=== PATIENT | male | born 1990 | race Caucasian/White ===

== ENCOUNTER 2021-08-20 22:17 | Inpatient (IN) ==
[2021-08-20] MEDS ORDERED: KETOROLAC TROMETHAMINE 15 MG/ML VIAL IV STA (22:32)
[2021-08-20] MEDS ORDERED: ONDANSETRON INJ 2 MG/ML 2 ML VIAL IV STA (22:32)
[2021-08-20] MEDS ORDERED: SODIUM CHLORIDE 0.9% 500 ML IV STA (22:32)
[2021-08-20] MEDS ORDERED: MoRPHine SULFATE 4 MG/ML 1 ML CARP\\VIAL IV STA ×2 (22:38→23:38)
--- NOTE | 2021-08-20 22:54 | Emergency Department Note ---
History of Present Illness General Chief complaint: Kidney Stone Stated complaint: POSS KIDNEY STONE, BLOOD IN URINE, L SIDE FLANK Time Seen by Provider: 08/20/21 22:26 History of Present Illness Maximum Pain Intensity: 9 This 31-year-old with history of kidney stones presents to the ER complaining of left flank pain Location: Left flank Quality: Painful Severity: Moderate Duration: Today Timing: Today Context: Patient was concerned and came in Modifying factors: better with nothing; worse with nothing Patient denies chest pain, dyspnea, fevers, flulike illness. Symptoms feel similar to his prior kidney stones. Home Medications Medication Instructions Recorded Confirmed Type acetaminophen 325 mg tablet 650 mg PO DIRECTED PRN 08/20/21 08/20/21 History (Tylenol) Allergies Allergy/AdvReac Type Severity Reaction Status Date / Time No Known Allergies Allergy Unknown UNKNOWN Verified 08/20/21 23:05 Past Med/Surg History Medical History Asthma as a child - no problems currently. no inhalers needed Nephrolithiasis Surgical History H/O wisdom tooth extraction History of dental surgery several dental implants Family History Grandfather Prostate cancer Diabetes Grandmother Breast cancer Nephrolithiasis Aunt Nephrolithiasis Father Hypertension Social History Smoking Status: Never smoker Second Hand Exposure: No; Hx Alcohol Use: Yes Alcohol type: beer Hx Substance Use: No Preferred Language: Norwegian Communication Ability: Effective General Utility Maintenance Repairer Required: No Beliefs That Will Affect Care: None marital status: Single Current Living Situation: Parent Current Living Situation Comment: mom and father current occupational 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 Feels Safe at Home: Yes Assistive Devices: Contacts and Glasses Review of Systems A total of 10 systems reviewed and were otherwise negative Physical Exam Vital Signs Vital Signs - 24 hr 08/20/21 22:21 08/20/21 22:47 Temperature 35.9 C L Temperature Source Temporal Artery Scan Pulse Rate 50 L Pulse Rate [Right Finger] 100 H Respiratory Rate 18 20 Respiratory Effort / Characteristics Non-Labored Spontaneous Non-Labored Respiratory Depth Normal Normal Blood Pressure 131/84 Blood Pressure [Right Arm] 132/80 Blood Pressure Mean 99 Blood Pressure Mean [Right Arm] 97 Pulse Oximetry 98 100 Oxygen Delivery Method Room Air Room Air Sepsis Recent Fever Within 48 Hours No Sepsis New/Unexplained Change in Mental Status No Sepsis Action Taken by Nursing No Action Required VITALS: Vitals are noted on the nurse's note and reviewed by myself. Vital signs stable. GENERAL: Pleasant gentleman who appears in pain, in no acute distress, non diaphoretic, well-developed well-nourished. SKIN: The skin was without rashes, erythema, edema, or bruising. There is no tenting of the skin. Capillary reflex less than 2 seconds. HEAD: Normocephalic atraumatic. EARS: External auditory canals clear, EYES: Pupils equal round and reactive to light and accommodation. Conjunctivae without injection, sclerae without icterus. Extraocular movements intact. NOSE: Patent, turbinates without inflammation or discharge. MOUTH: Mucous membranes moist. Pharynx without erythema or exudate. Uvula midline. Airway patent. Tongue does not deviate. NECK: Supple without nuchal rigidity. No lymphadenopathy. No thyromegaly. Cervical spine is nontender. No JVD. HEART: Regular rate and rhythm LUNGS: Clear to auscultation bilaterally without wheezes, rales or rhonchi. No retractions or accessory muscle use. ABDOMEN: Positive bowel sounds x 4. Normal tympanic percussion. Soft, nontender, without masses or organomegaly. Rivas sign negative. No guarding or rebound tenderness. No CVA tenderness MUSCULOSKELETAL: No muscle atrophy, erythema, or edema noted. NEURO: Patient was alert and oriented to person place and time. Normal se nsation to light and sharp touch. No focal neurological deficits. Course Administered Medications Discontinued Medications Sodium Chloride (Nss) 500 mls @ 999 mls/hr IV .Q31M STA Stop: 08/20/21 23:02 Last Infusion: 08/20/21 23:16 Dose: 0 mls/hr Documented by: [id number] Admin: 08/20/21 22:42 Dose: 999 mls/hr Documented by: [id number] Ketorolac Tromethamine (Ketorolac Tromethamine 15 Mg/Ml Vial) 10 mg IV NOW STA Stop: 08/20/21 22:33 Last Admin: 08/20/21 22:42 Dose: 10 mg Documented by: [id number] Morphine Sulfate (Morphine Sulfate 4 Mg/Ml 1 Ml Carp\Vial) 4 mg IV NOW STA Stop: 08/20/21 22:39 Last Admin: 08/20/21 22:42 Dose: 4 mg Documented by: [id number] Morphine Sulfate (Morphine Sulfate 4 Mg/Ml 1 Ml Carp\Vial) 4 mg IV NOW STA Stop: 08/20/21 23:39 Last Admin: 08/20/21 23:40 Dose: 4 mg Documented by: [id number] Ondansetron HCl (Ondansetron Inj 2 Mg/Ml 2 Ml Vial) 4 mg IV NOW STA Stop: 08/20/21 22:33 Last Admin: 08/20/21 22:42 Dose: 4 mg Documented by: [id number] Tamsulosin HCl (Tamsulosin Hcl 0.4 Mg Cap) 0.4 mg PO NOW ONE Stop: 08/20/21 23:39 Last Admin: 08/21/21 00:09 Dose: 0.4 mg Documented by: [id number] Medical Decision Making Medical Records Attestation: I reviewed the patient's medical records. Home Medications Current Medication List: was personally reviewed by me Laboratory Data Attestation: I reviewed the patient's lab results. Result diagrams: 08/20/21 22:36 08/20/21 22:36 Lab Results 08/20/21 08/20/21 08/20/21 Range/Units 22:36 22:36 23:27 WBC 8.74 (4.8-10.8) K/uL RBC 5.30 (4.7-6.1) M/uL Hgb 16.3 (14.0-18.0) g/dL Hct 46.6 (42-52) % MCV 87.9 (80-100) fL MCH 30.8 (25-34) pg MCHC 35.0 (32-36) g/dL RDW Std Deviation 42.8 (36.4-46.3) fL RDW Coeff of Kaden 13.2 (11.5-14.5) % Plt Count 255 (130-400) K/uL MPV 9.2 (7.4-10.4) fL Sodium 139 (136-145) mmol/L Potassium 3.4 L (3.5-5.1) mmol/L Chloride 104 (98-107) mmol/L Carbon Dioxide 28 (21-32) mmol/L Anion Gap 7 (3-11) BUN 21 (6-23) mg/dl Creatinine 1.20 (0.6-1.4) mg/dl Est Cr Clr Drug Dosing 105.6 ml/min Est GFR ( Amer) 92.2 ml/min Est GFR (Non-Af Amer) 79.5 ml/min BUN/Creatinine Ratio 17.5 (10-20) Glucose 101 H (70-99(Fasting)) mg/dl Calcium 10.0 (8.5-10.1) mg/dl Urine Color Yellow Urine Appearance Clear (Clear) Urine pH 6.0 (4.5-7.5) Ur Specific [place] 1.024 (1.000-1.030) Urine Protein Trace H (Negative) Urine Glucose (UA) Negative (Negative) Urine Ketones Negative (Negative) Urine Blood 3+ H (Negative) Urine Nitrite Negative (Negative) Urine Bilirubin Negative (Negative) Urine Urobilinogen Negative (Negative) Ur Leukocyte Esterase Trace H (Negative) Urine WBC (Auto) 5-10 H (0-5) /hpf Urine RBC (Auto) >30 H (0-4) /hpf U Hyaline Cast (Auto) 1-5 (0-5) /lpf U Epithel Cells (Auto) 5-10 H (0-5) /lpf Urine Bacteria (Auto) Negative (Negative) Imaging Data Attestation: I personally reviewed and interpreted this imaging study as follows: MDM Narrative Prior records/ancillary studies reviewed. Triage Nursing notes reviewed. Additional history obtained from the family. The patient's history was concerning for flank pain. Differential diagnosis: Etiologies such as renal colic, appendicitis, diverticulitis, mesenteric ischemia, aortic pathology, infections, inflammatory bowel disease, PUD, biliary pathology, UTI, as well as others were entertained. Physical examination findings: As above. ER treatment provided: Toradol Zofran morphine IV fluids On reassessment the patient felt better. Diagnostic interpretation by me: The labs revealed no worrisome leukocytosis. Urinalysis revealed There was no sign of UTI. Imaging studies: CT ABDOMEN & PELVIS Without Contrast: Comparison: CT abdomen and pelvis 01/03/21 Obstructing 5 mm proximal left ureter stone. Obstructing 7.4 mm mid left ureter stone. Mild upstream left-sided hydroureteronephrosis. Right kidney and collecting system are normal. Liver, gallbladder, spleen, pancreas, adrenal glands are unremarkable. Fluid-filled small bowel loops, probably reactive ileus. Normal appendix. No bowel obstruction. Hysterectomy. Normal urinary bladder. No acute osseous findings. Radiologist: Dorina Carvajal M.D. Consultation: A consultation was placed with the hospitalist. The case was discussed and diagnostics were reviewed. The patient was evaluated in the ER for further treatment. It appears that the patient has renal colic from a left Sided stone. She had 2 kidney stones. He was this fair amount of pain. Medicine is consulted. He will be admitted. By the evaluation outlined above emergent etiologies such as appendicitis, diverticulitis, mesenteric ischemia, aortic pathology, infections, inflammatory bowel disease, PUD, biliary pathology, UTI, as well as others were deemed relatively unlikely. The pt informed about the findings as listed above. All questions were answered and pleased with the treatment. The chart was completed utilizing [employer] voice recognition software. Grammatical errors, random word insertions, pronoun errors, and incomplete sentences are an occassional consequence of this system due to software limitations, ambient noise, and hardware issues. Any formal questions or concerns about the content, text, or information contained within the body of this dictation should be directly addressed to the physician program support assistant for clarification. Impression & Plan Renal colic on left side, Ureterolithiasis, Intractable pain Discharge Plan Visit Data Chief Complaint: Kidney Stone Stated Complaint: POSS KIDNEY STONE, BLOOD IN URINE, L SIDE FLANK ED Provider: Ti Broderick ED Midlevel Provider: Leanna Scott Discharge Problem: Renal colic on left side, Ureterolithiasis, Intractable pain Patient Disposition: Admitted As Inpatient Forms Stand Alone Forms: [facility] [employer] ([employer]) Prescriptions Prescriptions: No Action acetaminophen [Tylenol] 325 mg Tablet 650 mg PO DIRECTED PRN (Reason: PAIN/FEVER) RF: 0 Referrals Referrals: PCP,NO [Primary Care Provider] -
[2021-08-20 22:55] LABS: Hematocrit (blood only) 46.6 % (42-52); Hemoglobin 16.3 g/dL (14.0-18.0); Mean Corpuscular Hemoglobin 30.8 pg (25-34); Mean Corpuscular Volume 87.9 fL (80-100); Mean Platelet Volume 9.2 fL (7.4-10.4); Platelet Count 255 K/uL (130-400); RDW Coefficient of Variation 13.2 % (11.5-14.5); RDW Standard Deviation 42.8 fL (36.4-46.3); White Blood Count 8.74 K/uL (4.8-10.8)
[2021-08-20 23:11] LABS: BUN Creatinine Ratio 17.5 (10-20); Creatinine Clr Calc Pharmacy 105.6 ml/min; Est GFR (African American) 92.2 ml/min; Est GFR (Non-African American) 79.5 ml/min; Potassium 3.4 mmol/L (3.5-5.1)
[2021-08-20] MEDS ORDERED: TAMSULOSIN HCL 0.4 MG CAP PO ONE (23:38)
[2021-08-20 23:57] LABS: Appearance Urine Clear (Clear); Bacteria Urine Automated Negative (Negative); Bilirubin Urine Negative (Negative); Blood Urine 3+ (Negative); Color Urine Yellow; Glucose Urine UA Negative (Negative); Ketones Urine Negative (Negative); Leukocyte Esterase Urine Trace (Negative); Nitrite Urine Negative (Negative); Protein Urine Trace (Negative); RBC Urine Automated >30 /hpf (0-4); Specific Gravity Urine 1.024 (1.000-1.030); Urobilinogen Urine Negative (Negative)
--- NOTE | 2021-08-21 00:53 | Urology Consultation ---
Date of Consultation August 21, 2021 Assessment & Plan (1) Renal colic on left side: Due to the patient's imaging and clinical presentation he is being admitted to the hospital on the hospitalist service. We recommend proceeding as follows: Provide analgesics Provide antiemetics Provide hydration with IV fluids Provide Flomax for expulsive therapy Strain urine and save any kidney stones for analysis Maintain n.p.o. status Patient be reevaluated in the morning by the urology team to determine if patient will require cystoscopy Additional recommendations be forthcoming based on his clinical course as it unfolds History of Present Illness Reason for Consultation: Nephrolithiasis History of Present Illness This is a 31-year-old male who presented to [facility] secondary to left flank pain that began earlier today. Patient notes that the pain radiates to the front of his abdomen. With this pain he denies any fevers, rigors, or chills. He did report nausea and vomiting. He does report some difficulty urinating and he did note some blood in his urine but denies any dysuria. He does not report any palliative factors other than medicines administered in the emergency department. He did not note any provocative factors. He does report a history of kidney stones in the past. In January 2021 the patient was noted to have right-sided kidney stones for which she underwent a right extracorporeal shockwave lithotripsy by Dr. Armando. The patient says he has not had any other issues with kidney stones since that time until today. In the emergency department the patient had labs and imaging which I independently reviewed. A CT scan of the abdomen and pelvis showed the patient had obstructing 5 and 7.4 mm left ureteral stones with left-sided hydroureteronephrosis. A CBC revealed white blood cell count, hemoglobin, hematocrit, platelet count were all normal. Chemistry profile showed sodium and potassium are 139 and 3.4. BUN and creatinine were both normal. Urinalysis did show 3+ blood and trace leukocyte esterase. It was otherwise not indicative of infection. A COVID test was ordered and is pending. The patient notes that he leads an active lifestyle. He works out at the gym several times per week and also works for [employer] which is a strenuous physical job. With his day-to-day activities he does not report any chest pain or shortness of breath. At the time of my interview the patient was resting comfortably in bed and he was in no distress. Allergies Allergy/AdvReac Type Severity Reaction Status Date / Time No Known Allergies Allergy Unknown UNKNOWN Verified 08/20/21 23:05 Home Medications Medication Instructions Recorded Confirmed Type acetaminophen 325 mg tablet 650 mg PO DIRECTED PRN 08/20/21 08/20/21 History (Tylenol) Patient History Medical History Asthma as a child - no problems currently. no inhalers needed Nephrolithiasis Surgical History H/O wisdom tooth extraction History of dental surgery several dental implants Family History Grandfather Prostate cancer Diabetes Grandmother Breast cancer Nephrolithiasis Aunt Nephrolithiasis Father Hypertension Social History Smoking Status: Never smoker Second Hand Exposure: No; Hx Alcohol Use: Yes Alcohol type: beer Hx Substance Use: No Preferred Language: Sammarinese Communication Ability: Effective Gas Line Installer Required: No Beliefs That Will Affect Care: None marital status: Single Current Living Situation: Parent Current Living Situation Comment: mom and father current occupational status: employed 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 Feels Safe at Home: Yes Assistive Devices: Contacts and Glasses Review of Systems Constitutional: no fever and no chills Ear, Nose, Mouth, Throat: no hearing loss Respiratory: no dyspnea Cardiovascular: no chest pain Gastrointestinal: + abdominal pain (Radiating from left flank), + nausea and + vomiting Genitourinary: + as per Subjective / HPI Musculoskeletal: + back pain (Left flank) Integumentary: no rash Neurologic: no generalized weakness Physical Exam Constitutional: WD/WN, vitals as above Eyes: no conjunctival abnormality ENMT: Ears: no hearing impairment Mouth: no oropharynx abnormality Neck: trachea midline Respiratory: normal respiratory effort, lungs clear to auscultation Cardiovascular: Rate/Rhythm: regular rate and regular rhythm Gastrointestinal (Abdomen): Abdomen is soft and nondistended. There is pain with palpation on the left side of his abdomen without rebound tenderness or guarding. Musculoskeletal: No calf tenderness or lower extremity edema Skin: no rashes Neurologic: moves all extremities Psychiatric: A+Ox3, euthymic affect Results & Data ([facility]) Vital Signs (Past 12 Hours) Vital Signs Temp Pulse Pulse Resp BP BP Pulse Ox 08/20/21 22:47 100 H 20 132/80 100 08/20/21 22:21 35.9 C L 50 L 18 131/84 98 PG Care Time/CCT Total # of Minutes Spent Total Time Spent with Patient: Total time spent is greater than 50% in coordination of care (as documented) at patient's floor/unit and/or counseling patient: Coding Level of Care Code 17367 Inpt Consult Level 5 Diagnoses Renal colic on left side N23
--- NOTE | 2021-08-21 01:22 | History & Physical Report ---
Date of Service August 21, 2021 Assessment & Plan (1) Left ureteral calculus: Plan: 5 mm proximal left ureteral stone/7.4 mm mid left ureteral stone/mild left hydroureteronephrosis- NPO Follow urine culture and sensitivity Ceftriaxone 2 g IV daily Acetaminophen 650 mg p.o. every 6 hours as needed mild pain or fever [place] 5/325, 1 p.o. every 4 hours as needed moderate pain Morphine sulfate 4 mg IV every 3 hours as needed severe pain NSS + KCl 20 mEq at 100 mils per hour x1 L Zofran 4 mg IV every 6 hours as needed Consult urology (2) Hydronephrosis of left kidney: Plan: See above (3) Hydronephrosis with obstructing calculus: Plan: See above (4) Renal colic on left side: Plan: See above History of Present Illness Chief Complaint: The patient reports hematuria and left flank pain that began yesterday, and presents to the ED today due to the development of worsening abdominal pain, a temperature, nausea and vomiting Primary Care Provider: NO PCP The patient is a 31-year-old male with a past medical history including right ureteral stone. He presents to the emergency department with similar type of pain, but this time on the left side, along with his symptoms as noted above. CT scan of abdomen and pelvis without contrast shows a 5 mm proximal left ureteral stone, a 7.4 mm mid left ureteral stone, and mild left hydroureteronephrosis. Reactive ileus is also noted. The patient did have his pain improved with morphine IV, and nausea and vomiting improved with Zofran. Allergies Allergy/AdvReac Type Severity Reaction Status Date / Time No Known Allergies Allergy Unknown UNKNOWN Verified 08/20/21 23:05 Home Medications Medication Instructions Recorded Confirmed Type acetaminophen 325 mg tablet 650 mg PO DIRECTED PRN 08/20/21 08/20/21 History (Tylenol) Past Med/Surg History Medical History Asthma as a child - no problems currently. no inhalers needed Nephrolithiasis Surgical History H/O wisdom tooth extraction History of dental surgery several dental implants Family History Grandfather Prostate cancer Diabetes Grandmother Breast cancer Nephrolithiasis Aunt Nephrolithiasis Father Hypertension Social History Smoking Status: Never smoker Second Hand Exposure: No; Hx Alcohol Use: Yes Alcohol type: beer Hx Substance Use: No Preferred Language: Occitan Communication Ability: Effective Film Library Clerk Required: No Beliefs That Will Affect Care: None marital status: Single Current Living Situation: Parent Current Living Situation Comment: mom and father current occupational status: employed 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 Feels Safe at Home: Yes Assistive Devices: Contacts and Glasses Review of Systems Review of Systems: The patient denies chest pain, palpitations, shortness of breath, dyspnea on exertion, cough, lower extremity swelling, sore throat, chills, sweats, diarrhea , constipation, abdominal pain, pelvic pain, blood in urine or stool, dysuria, urinary frequency or urgency, lightheadedness, dizziness, headache, memory loss, loss of consciousness, rash, abnormal bruising or bleeding, imbalance, focal or generalized weakness, numbness or tingling in arms or legs, generalized arthralgias or myalgias, neck pain, or night sweats. The review of systems is otherwise negative other than for that already noted above, and at least 10 systems have been reviewed. Physical Exam Physical Exam: The patient is awake, alert and oriented 3, well developed and well nourished, normocephalic and atraumatic, lying in bed and in no acute distress after receiving IV morphine HEENT--PERRL, EOMI, mucous membranes and oropharynx normal. Neck--supple. No JVD. No bruits. Thyroid normal, trachea midline, no adenopathy. Heart--normal S1 and S2. No murmurs, rubs or gallops. Lungs--clear bilaterally, no respiratory distress, no accessory muscle use. Abdomen--normal bowel sounds and soft. Mild left flank pain. Nondistended. Extremities--no cyanosis or clubbing. No edema. Dermatologic--normal skin turgor, normal color, no abnormal lymph nodes, no rash. Neurologic--cranial nerves II through XII grossly intact. Rheumatologic--normal range of motion. Psychiatric--normal affect. Results & Data Results & Data ([facility]) Vital Signs (Past 12 Hours) Vital Signs Temp Pulse Pulse Resp BP BP Pulse Ox 08/20/21 22:47 100 H 20 132/80 100 08/20/21 22:21 35.9 C L 50 L 18 131/84 98 Laboratory Results Laboratory Results WBC 8.74 K/uL (4.8-10.8) 08/20/21 22:36 RBC 5.30 M/uL (4.7-6.1) 08/20/21 22:36 Hgb 16.3 g/dL (14.0-18.0) 08/20/21 22:36 Hct 46.6 % (42-52) 08/20/21 22:36 MCV 87.9 fL (80-100) 08/20/21 22:36 MCH 30.8 pg (25-34) 08/20/21 22:36 MCHC 35.0 g/dL (32-36) 08/20/21 22:36 RDW Std Deviation 42.8 fL (36.4-46.3) 08/20/21 22:36 RDW Coeff of Kaden 13.2 % (11.5-14.5) 08/20/21 22:36 Plt Count 255 K/uL (130-400) 08/20/21 22:36 MPV 9.2 fL (7.4-10.4) 08/20/21 22:36 Sodium 139 mmol/L (136-145) 08/20/21 22:36 Potassium 3.4 mmol/L (3.5-5.1) L 08/20/21 22:36 Chloride 104 mmol/L (98-107) 08/20/21 22:36 Carbon Dioxide 28 mmol/L (21-32) 08/20/21 22:36 Anion Gap 7 (3-11) 08/20/21 22:36 BUN 21 mg/dl (6-23) 08/20/21 22:36 Creatinine 1.20 mg/dl (0.6-1.4) 08/20/21 22:36 Est Cr Clr Drug Dosing 105.6 ml/min 08/20/21 22:36 Est GFR ( Amer) 92.2 ml/min 08/20/21 22:36 Est GFR (Non-Af Amer) 79.5 ml/min 08/20/21 22:36 BUN/Creatinine Ratio 17.5 (10-20) 08/20/21 22:36 Glucose 101 mg/dl (70-99(Fasting)) H 08/20/21 22:36 Calcium 10.0 mg/dl (8.5-10.1) 08/20/21 22:36 Urine Color Yellow 08/20/21 23: Urine Appearance Clear (Clear) 08/20/21 23: Urine pH 6.0 (4.5-7.5) 08/20/21 23: Ur Specific [place] 1.024 (1.000-1.030) 08/20/21 23: Urine Protein Trace (Negative) H 08/20/21 23: Urine Glucose (UA) Negative (Negative) 08/20/21: Urine Ketones Negative (Negative) 08/20/21 23: Urine Blood 3+ (Negative) H 08/20/21 23: Urine Nitrite Negative (Negative) 08/20/21 23: Urine Bilirubin Negative (Negative) 08/20/21 23: Urine Urobilinogen Negative (Negative) 08/20/21 23:27 Ur Leukocyte Esterase Trace (Negative) H 08/20/21 23:27 Urine WBC (Auto) 5-10 /hpf (0-5) H 08/20/21 23: Urine RBC (Auto) >30 /hpf (0-4) H 08/20/21: U Hyaline Cast (Auto) 1-5 /lpf (0-5) 08/20/21 23: U Epithel Cells (Auto) 5-10 /lpf (0-5) H 08/20/21 23:27 Urine Bacteria (Auto) Negative (Negative) 08/20/21 23: SARS-CoV-2, RNA, NAAT NEGATIVE (NEGATIVE) 08/21/21 00:24 Diagnostic Findings [facility] Patient: NEHAL LOPEZ (Male) : 88 Status: ER Date: 08/20/21 22:53 Room #: History: LT FLANK PAIN HX STONES APPENDIX PRESENT EK/MH/EH Slices: [id number] Priors: Tech: Garrett Ames @ [id number] Exams: CT ABDOMEN & PELVIS Without Contrast Contrast: Accession Numbers: [id number] Referring Physician: KIMANI ATKINS Preliminary Findings Only See Final Report For Complete Findings CT ABDOMEN & PELVIS Without Contrast: Comparison: CT abdomen and pelvis 01/03/21 Obstructing 5 mm proximal left ureter stone. Obstructing 7.4 mm mid left ureter stone. Mild upstream left-sided hydroureteronephrosis. Right kidney and collecting system are normal. Liver, gallbladder, spleen, pancreas, adrenal glands are unremarkable. Fluid-filled small bowel loops, probably reactive ileus. Normal appendix. No bowel obstruction. Hysterectomy. Normal urinary bladder. No acute osseous findings. Radiologist: Dorina Carvajal M.D. Study ready at 22:57 and initial results transmitted at 00:18 *This report constitutes a preliminary interpretation only. Non-acute f indings felt to be unrelated to the clinical presentation may not be discussed in this report. The study will be interpreted and a final report will be generated by the local Radiologist the following shift. To reach [facility] call [phone]. If a discrepancy is found between the preliminary and final interpretations of this study, please notify us via our Client Portal at [email or web address], under QA Exams. You can also fax this report with a description of the discrepancy, or include the final report, to our daytime fax number [phone]. If faxing, please indicate the severity of discrepancy using one of the following categories: [ ] 1 - Agree/Informational [ ] 2 - Unlikely to Affect Management [ ] 3 - Possible Eventual Change of Management [ ] 4 - Probable Immediate Change of Management For all other patient related information, please fax us at [phone]. [id number] Code Status & VTE Plan Code Status Full code VTE Prophylaxis Plan VTE Prophylaxis will be ordered: Yes PG Care Time/CCT Total # of Minutes Spent Total Time Spent with Patient: Total time spent is greater than 50% in coordination of care (as documented) at patient's floor/unit and/or counseling patient: Coding Level of Care Code 28722 Initial Inpt Care Lvl 2 Diagnoses Left ureteral calculus N20.1 Hydronephrosis of left kidney N13.30 Hydronephrosis with obstructing calculus N13.2 Renal colic on left side N23
[2021-08-21] MEDS ORDERED: MoRPHine SULFATE 4 MG/ML 1 ML CARP\\VIAL IV PRN (02:58)
[2021-08-21] MEDS ORDERED: ACETAMINOPHEN 325 MG TAB PO PRN (02:58)
[2021-08-21] MEDS ORDERED: HYDROCODONE/ACETAMOPHEN 5/325MG TAB PO PRN (02:58)
[2021-08-21] MEDS ORDERED: ONDANSETRON INJ 2 MG/ML 2 ML VIAL IV PRN ×2 (02:58→13:05)
[2021-08-21] MEDS: NSS + 20MEQ KCL 20 MEQ/1,000 ML BAG IV SCH ×2 (03:22→16:23)
[2021-08-21] MEDS: cefTRIAXone SODIUM 2,000 MG in DEXTROSE 5% 50 ML IV SCH (05:56)
--- NOTE | 2021-08-21 08:01 | Urology Progress Note ---
Date of Service August 21, 2021 Assessment & Plan (1) Left ureteral calculus: (2) Hydronephrosis of left kidney: (3) Renal colic on left side: Plan: 31yo M admitted with intractable left flank pain secondary to an obstructing 7 mm x 4 mm proximal left ureteral calculus and an additional 5 mm left ureteropelvic junction calculus - Afebrile, hemodynamically stable, non-toxic appearing. - Labs reviewed - White count and creatinine normal. - Urinalysis did show 3+ blood and trace leukocyte esterase, otherwise not indicative of infection. On IV Ceftriaxone. - Discussed options for acute stone management with cystoscopy and stent placement. Discussed outpatient ESWL. Risks/benefits of each discussed. - Stone free rates were also discussed as well as possibility of multiple procedures. Ureteral stents were discussed as well as post-operative issues and pain management. - Patient elects to proceed with stent placement today. - Plan of care and imaging reviewed with Dr. Spear, on-call urologist. - Given his intractable left flank pain in the context of an obstructing 7mm x 4mm proximal left ureteral calculus and an additional 5 mm left ureteropelvic junction calculus will proceed with OR for cystoscopy, left retrograde pyelogram, left ureteral stent placement. - Risks and benefits to be reviewed with patient by Dr Spear. OR notified. Covid test negative. Covered with scheduled IV Ceftriaxone. - Keep NPO. - Continue supportive care, antibiotics, tamsulosin, and pain management. - Patient agreeable to plan, all questions were answered. - Will continue to follow. Attending note: Patient was independently examined, interviewed, assessed, and consented. Agree with above. Patient has 2 ureteral stones causing considerable obstruction of the ureter. Patient has a known history of stone disease and is previously had ESWL. Patient continues to have significant pain discomfort in waves into the back and flank that has been severe. Has considered different options. Discussed further intervention. Discussed possible options for management. We will plan to proceed with intervention to deal with obstruction and likely set patient up for stone treatment in the coming weeks. Risks and benefits discussed at length for procedure. These include bleeding, infection, injury to surrounding tissues or organs, and risks associated with anesthesia. Patient states understanding and agrees to proceed. Will sign consent and proceed with Cystosocyp and left stent placement. Admission and Anticipated Discharge Date Admission Date: August 21, 2021 Subjective Pt examined at bedside this AM. Awake, resting in bed on arrival. No acute distress. No fevers. Still with left flank pain, managing with IV pain medication. Has been NPO. No nausea/vomiting this morning. Voiding without issue. Some hematuria. Denies dysuria. Review of Systems Constitutional: as per Subjective / HPI Gastrointestinal: as per Subjective / HPI Genitourinary: + as per Subjective / HPI Physical Exam Constitutional: no acute distress Respiratory: no respiratory distress and no labored breathing Gastrointestinal (Abdomen): Inspection/Auscultation: abdomen normal to inspection Percussion/Palpation: + abdomen tender (LLQ tenderness with palpation) and abdomen soft; no guarding Skin: Warm and dry Neurologic: moves all extremities and awake Psychiatric: Orientation: alert and oriented x 3 Genitourinary: Left flank tenderness with palpation Results & Data ([facility]) Vital Signs (Past 12 Hours) Vital Signs Temp Pulse Pulse Resp BP BP Pulse Ox 08/21/21 07:28 36.6 C 70 16 106/62 96 08/21/21 02:45 37 C 71 16 124/83 95 08/21/21 02:30 51 L 17 127/79 93 08/20/21 22:47 100 H 20 132/80 100 08/20/21 22:21 35.9 C L 50 L 18 131/84 98 PG Care Time/CCT Total # of Minutes Spent Total Time Spent with Patient: Total time spent is greater than 50% in coordination of care (as documented) at patient's floor/unit and/or counseling patient: Coding Level of Care Code None Diagnoses Left ureteral calculus N20.1 Renal colic on left side N23 Hydronephrosis of left kidney N13.30
--- NOTE | 2021-08-21 08:24 | CT Scan Report ---
CT OF THE ABDOMEN AND PELVIS WITHOUT CONTRAST CLINICAL HISTORY: flank pain, ? stone COMPARISON STUDY: CT of the abdomen and pelvis January 03, 2021. KUB April 25, 2021. TECHNIQUE: Axial images of the abdomen and pelvis were obtained without IV contrast. Images were revi ewed in the axial, sagittal, and coronal planes. Automated exposure control was utilized for the elena dy. A dose lowering technique was utilized adhering to the principles of ALARA. FINDINGS: Lung bases are unremarkable. Note is made of a 5 mm left ureteropelvic junction calculus. T here is mild left hydronephrosis. There is also a 7 mm x 4 mm proximal left ureteral calculus. There is mild left perinephric and periureteral stranding. No additional urinary calculi are identified. Is no right hydronephrosis. Evaluation of the remainder of the abdomen and pelvis is suboptimal on this unenhanced exam. Liver, spleen, adrenal glands and pancreas are unremarkable. No evidence for a louise l obstruction. Appendix is normal. There are prominent fluid-filled loops of small bowel without holbrook sition point. These are likely within normal limits. There is no lymphadenopathy or ascites. No acute fracture or suspicious lesion is identified within the visualized skeletal structures. IMPRESSION: 7 mm x 4 mm proximal left ureteral calculus. Additional 5 mm left ureteropelvic junction calculus. Mi ld left hydronephrosis. ACT 112: Negative or not required by law. Electronically signed by: Shayne Chapman M.D. 08/21/2021 8:23 AM
--- NOTE | 2021-08-21 08:57 | Hospitalist Progress Note ---
Date of Service August 21, 2021 Assessment & Plan (1) Left ureteral calculus: Plan: Hx nephrolithiasis on the right last year, tx with ESWL with Dr Armando Imaging with 5 mm proximal left ureteral stone/7.4 mm mid left ureteral stone/mild left hydroureteronephrosis Urology on consult Flomax HS NPO To undergo cystoscopy with stent with Urology later today IVF +20meq Kcl @ 125cc/hr, extended additional 1L for dehydration on exam Continue Ceftriaxone UA without bacteria -- no culture pending Pain control, antiemetics prn Check Mag given K low on admit, AM labs pending Continue to monitor/supportive care/electrolyte replacement as needed (2) Hydronephrosis of left kidney: Plan: See above (3) Hydronephrosis with obstructing calculus: Plan: See above (4) Renal colic on left side: Plan: See above Plan: SCDs, ambulation for DVT prophylaxis NPO for OR today with Urology Admission and Anticipated Discharge Date Admission Date: August 21, 2021 Supervising Physician Co-Signing Physician Notes Attending Attestation - Chart reviewed, care plan d/w ELENI Donnelly. I agree w/ the mcclendon components of her documentation. Ralph Diaz MD Subjective BRIDGE NOTE: ADMITTED AFTER MIDNIGHT Patient evaluated this morning. Doing well. Pain controlled. Similar issues with kidney stone last year on the opposite side, underwent shock wave therapy with anesthesia with Dr Armando and tolerated well. Had noticed similar flank pain and hematuria which alerted him of possible stone. MM slightly dry and IVF not currently infusing, discussed with RN to hook back up. No fever (had some chills first thing this morning but nothing since), no chest pain, shortness of breath, nausea, or vomiting at this time. Review of Systems Review of Systems: All systems reviewed & are unremarkable except as noted in HPI & below Physical Exam Physical Exam: General: WN, WD male sitting upright in bed, NAD HEENT: head normocephalic, atraumatic, mm dry, trachea midline without deviation Resp: CTAB, no w/c/r, on room air CV: RRR, no m/r/g, no calf tenderness or edema GI: +BS, soft, non-tender, slight L flank tenderness : no woody Psych: AOx3, pleasant and cooperative MSK/Neuro: CN intact grossly, follows commands, answering questions appropriate ly, no focal deficit appreciated Results & Data Results & Data ([facility]) Vital Signs (Past 12 Hours) Vital Signs Temp Pulse Pulse Resp BP BP Pulse Ox 08/21/21 07:28 36.6 C 70 16 106/62 96 08/21/21 02:45 37 C 71 16 124/83 95 08/21/21 02:30 51 L 17 127/79 93 08/20/21 22:47 100 H 20 132/80 100 08/20/21 22:21 35.9 C L 50 L 18 131/84 98 Laboratory Results 08/21/21 08/20/21 08/20/21 Range/Units 00:24 23:27 22:36 WBC (4.8-10.8) K/uL RBC (4.7-6.1) M/uL Hgb (14.0-18.0) g/dL Hct (42-52) % MCV (80-100) fL MCH (25-34) pg MCHC (32-36) g/dL RDW Std Deviation (36.4-46.3) fL RDW Coeff of Kaden (11.5-14.5) % Plt Count (130-400) K/uL MPV (7.4-10.4) fL Sodium 139 (136-145) mmol/L Potassium 3.4 L (3.5-5.1) mmol/L Chloride 104 (98-107) mmol/L Carbon Dioxide 28 (21-32) mmol/L Anion Gap 7 (3-11) BUN 21 (6-23) mg/dl Creatinine 1.20 (0.6-1.4) mg/dl Est Cr Clr Drug Dosing 105.6 ml/min Est GFR ( Amer) 92.2 ml/min Est GFR (Non-Af Amer) 79.5 ml/min BUN/Creatinine Ratio 17.5 (10-20) Glucose 101 H (70-99(Fasting)) mg/dl Calcium 10.0 (8.5-10.1) mg/dl Urine Color Yellow Urine Appearance Clear (Clear) Urine pH 6.0 (4.5-7.5) Ur Specific [place] 1.024 (1.000-1.030) Urine Protein Trace H (Negative) Urine Glucose (UA) Negative (Negative) Urine Ketones Negative (Negative) Urine Blood 3+ H (Negative) Urine Nitrite Negative (Negative) Urine Bilirubin Negative (Negative) Urine Urobilinogen Negative (Negative) Ur Leukocyte Esterase Trace H (Negative) Urine WBC (Auto) 5-10 H (0-5) /hpf Urine RBC (Auto) >30 H (0-4) /hpf U Hyaline Cast (Auto) 1-5 (0-5) /lpf U Epithel Cells (Auto) 5-10 H (0-5) /lpf Urine Bacteria (Auto) Negative (Negative) SARS-CoV-2, RNA, NAAT NEGATIVE (NEGATIVE) 08/20/21 Range/Units 22:36 WBC 8.74 (4.8-10.8) K/uL RBC 5.30 (4.7-6.1) M/uL Hgb 16.3 (14.0-18.0) g/dL Hct 46.6 (42-52) % MCV 87.9 (80-100) fL MCH 30.8 (25-34) pg MCHC 35.0 (32-36) g/dL RDW Std Deviation 42.8 (36.4-46.3) fL RDW Coeff of Kaden 13.2 (11.5-14.5) % Plt Count 255 (130-400) K/uL MPV 9.2 (7.4-10.4) fL Sodium (136-145) mmol/L Potassium (3.5-5.1) mmol/L Chloride (98-107) mmol/L Carbon Dioxide (21-32) mmol/L Anion Gap (3-11) BUN (6-23) mg/dl Creatinine (0.6-1.4) mg/dl Est Cr Clr Drug Dosing ml/min Est GFR ( Amer) ml/min Est GFR (Non-Af Amer) ml/min BUN/Creatinine Ratio (10-20) Glucose (70-99(Fasting)) mg/dl Calcium (8.5-10.1) mg/dl Urine Color Urine Appearance (Clear) Urine pH (4.5-7.5) Ur Specific [place] (1.000-1.030) Urine Protein (Negative) Urine Glucose (UA) (Negative) Urine Ketones (Negative) Urine Blood (Negative) Urine Nitrite (Negative) Urine Bilirubin (Negative) Urine Urobilinogen (Negative) Ur Leukocyte Esterase (Negative) Urine WBC (Auto) (0-5) /hpf Urine RBC (Auto) (0-4) /hpf U Hyaline Cast (Auto) (0-5) /lpf U Epithel Cells (Auto) (0-5) /lpf Urine Bacteria (Auto) (Negative) SARS-CoV-2, RNA, NAAT (NEGATIVE) Diagnostic Findings Abdomen/Pelvis CT 08/20/21 22:32 CT OF THE ABDOMEN AND PELVIS WITHOUT CONTRAST CLINICAL HISTORY: flank pain, ? stone COMPARISON STUDY: CT of the abdomen and pelvis January 03, 2021. KUB April 25, 2021. TECHNIQUE: Axial images of the abdomen and pelvis were obtained without IV contrast. Images were reviewed in the axial, sagittal, and coronal planes. Automated exposure control was utilized for the study. A dose lowering technique was utilized adhering to the principles of ALARA. FINDINGS: Lung bases are unremarkable. Note is made of a 5 mm left ureteropelvic junction calculus. There is mild left hydronephrosis. There is also a 7 mm x 4 mm proximal left ureteral calculus. There is mild left perinephric and periureteral stranding. No additional urinary calculi are identified. Is no right hydronephrosis. Evaluation of the remainder of the abdomen and pelvis is suboptimal on this unenhanced exam. Liver, spleen, adrenal glands and pancreas are unremarkable. No evidence for a bowel obstruction. Appendix is normal. There are prominent fluid-filled loops of small bowel without transition point. These are likely within normal limits. There is no lymphadenopathy or ascites. No acute fracture or suspicious lesion is identified within the visualized skeletal structures. IMPRESSION: 7 mm x 4 mm proximal left ureteral calculus. Additional 5 mm left ureteropelvic junction calculus. Mild left hydronephrosis. ACT 112: Negative or not required by law. Electronically signed by: Shayne Chapman M.D. 08/21/2021 8:23 AM PG Care Time/CCT Total # of Minutes Spent Total Time Spent with Patient: Total time spent is greater than 50% in coordination of care (as documented) at patient's floor/unit and/or counseling patient: Coding Level of Care Code None Diagnoses Left ureteral calculus N20.1 Hydronephrosis of left kidney N13.30 Hydronephrosis with obstructing calculus N13.2 Renal colic on left side N23
--- NOTE | 2021-08-21 10:09 | History & Physical Bridge Note ---
Date of Service August 21, 2021 History & Physical Bridge Note I have examined the patient, reviewed the History & Physical and in the interval since the performance of the History & Physical I have noted the following changes of clinical significance: no changes noted
--- NOTE | 2021-08-21 12:43 | XRay Report ---
KUB CLINICAL HISTORY: Left ureteral calculi. FINDINGS: 2 AP supine abdominal radiographs are compared to study dated 02/02/2021 and correlated wit h abdominal CT dated 08/20/2021. There is a nonobstructed abdominal bowel gas pattern noting moderate colonic fecal retention. A 5 mm calculus projects over the lower pole of the left kidney. A 6 mm calc ification projects over the distal left ureter and likely represents a ureteral stone. No calcificati ons are seen projecting over the right kidney along the course of the right ureter. There are additio nal pelvic phleboliths. The bony structures appear intact. IMPRESSION: 1. A 6 mm calcification projects over the distal left and likely represents a ureteral stone. 2. An additional 5 mm calculus projects over the lower pole of the left kidney. Electronically signed by: Garrett España M.D. 08/21/2021 12:42 PM
[2021-08-21] MEDS ORDERED: ONDANSETRON INJ 2 MG/ML 2 ML VIAL ONE (12:57)
[2021-08-21] MEDS ORDERED: MIDAZOLAM HCL 1 MG/ML 2ML VIAL ONE (12:57)
[2021-08-21] MEDS ORDERED: LIDOCAINE 2% 2 ML VIAL/AMP(20MG/ML) INFIL ONE (12:57)
[2021-08-21] MEDS ORDERED: PROPOFOL IV EMULSION 10 MG/ML 20 ML VIAL IV ONE (12:57)
[2021-08-21] MEDS ORDERED: DEXAMETHASONE SOD INJ 4 MG/ML VIAL ONE (12:57)
[2021-08-21] MEDS ORDERED: fentaNYL citrate 100 MCG/2 ML VIAL ONE (12:58)
--- NOTE | 2021-08-21 13:04 | Anesthesiology Consultation ---
Date of Service August 21, 2021 Assessment & Plan Chart Review Chart Review: Acceptable Risk for Surgery Consults Requested none ASA ASA2 Proposed Anesthesia Anesthesia Type: General Risk / Benefits Reviewed With: PT / POA / Parent / Guardian, Accepts Plan and Informed Consent Obtained History Surgery Operation Date: 08/21/21 16:30 Proposed Procedures p Cystoscopy, Left Retrograde Pyelogram, Left Stent Placement - Robbin Spear DO Height/Weight Height: 6 ft 3 in Weight: 89.3 kg Allergies Allergy/AdvReac Type Severity Reaction Status Date / Time No Known Allergies Allergy Unknown UNKNOWN Verified 08/20/21 23:05 Medications Home Medications Medication Instructions Recorded Confirmed Last Taken acetaminophen 325 mg tablet 650 mg PO DIRECTED PRN 08/20/21 08/20/21 08/20/21 21:30 (Tylenol) Active Medications Generic Name Dose Route Start Last Admin Trade Name Freq PRN Reason Stop Dose Admin Ceftriaxone Sodium 2,000 mg/ 70 mls @ 100 mls/hr 08/21/21 06:00 08/21/21 06:42 Dextrose IV 08/31/21 05:59 Infused Q24H MIGUEL A Infusion Protocol Potassium Chloride/Sodium Chloride 20 meq in 1,000 mls @ 100 mls/hr 08/21/21 02:58 08/21/21 03:22 Normal Saline W/20 Meq Kcl IV 08/21/21 22:57 100 mls/hr .Q10H MIGUEL A Administration Protocol Morphine Sulfate 4 mg 08/21/21 02:58 08/21/21 06:03 Morphine Sulfate 4 Mg/Ml 1 Ml Carp\Vial IV 09/04/21 02:57 4 mg Q3H PRN Administration Severe Pain NPO Date Last Intake of Fluids: 08/20/21 Time Last Intake of Fluids: 23:59 Date Last Intake of Solids: 08/20/21 Time Last Intake of Solids: 23:59 Past Medical History Medical History Asthma as a child - no problems currently. no inhalers needed Nephrolithiasis Exercise / Class Metabolic Activity II 4-5 Yardwork/Stairs/Walk up hill Past Family History Family History Grandfather Prostate cancer Diabetes Grandmother Breast cancer Nephrolithiasis Aunt Nephrolithiasis Father Hypertension Past Surgical History Surgical History H/O wisdom tooth extraction History of dental surgery several dental implants Past Anesthesia History No Hx of Anesthesia Complications and No Family Hx of Anesthesia Complications History of PONV No Hx of PONV and No Hx of Motion Sickness Social History Smoking Status: Never smoker tobacco type: cigarettes Smoking cigarettes per day: a few here and there Do You Dip or Chew Tobacco: No Hx Alcohol Use: Yes Alcohol type: beer alcohol intake frequency: a few times a week Hx Substance Use: No substance use type: does not use Physical Exam Vital Signs Last Vital Signs Temp 36.6 C 08/21/21 07:28 Pulse 70 08/21/21 07:28 Resp 16 08/21/21 07:28 BP 106/62 08/21/21 07:28 Pulse Ox 96 08/21/21 07:28 ENMT Mouth: no TMJ abnormality Thyromental Distance: > or= 3.5 Finger Breadths Mallampati Class: II Neck normal visual inspection and trachea midline; neck extension not limited Respiratory normal respiratory effort Auscultation: lungs clear to auscultation bilaterally Cardiovascular Rate/Rhythm: regular rate and regular rhythm Heart Sounds: no murmur Musculoskeletal Spine: normal cervical ROM Extremities: full ROM of extremities Neurologic moves all extremities Psychiatric Orientation: alert and oriented x 3 Testing Laboratory Results Urine Color Yellow 08/20/21 23:27 Urine Appearance Clear (Clear) 08/20/21 23:27 Urine pH 6.0 (4.5-7.5) 08/20/21 23:27 Ur Specific [place] 1.024 (1.000-1.030) 08/20/21 23:27 Urine Protein Trace (Negative) H 08/20/21 23:27 Urine Glucose (UA) Negative (Negative) 08/20/21 23:27 Urine Ketones Negative (Negative) 08/20/21 23: Urine Nitrite Negative (Negative) 08/20/21 23:27 Ur Leukocyte Esterase Trace (Negative) H 08/20/21 23:27 Urine WBC (Auto) 5-10 /hpf (0-5) H 08/20/21 23:27 Urine RBC (Auto) >30 /hpf (0-4) H 08/20/21 23:27 U Hyaline Cast (Auto) 1-5 /lpf (0-5) 08/20/21 23:27 U Epithel Cells (Auto) 5-10 /lpf (0-5) H 08/20/21 23:27 Urine Bacteria (Auto) Negative (Negative) 08/20/21 23:27
[2021-08-21 13:05] LABS: Hematocrit (blood only) 42.9 % (42-52); Hemoglobin 14.6 g/dL (14.0-18.0); Mean Corpuscular Hemoglobin 30.1 pg (25-34); Mean Corpuscular Volume 88.5 fL (80-100); Mean Platelet Volume 8.9 fL (7.4-10.4); Platelet Count 201 K/uL (130-400); RDW Coefficient of Variation 13.3 % (11.5-14.5); RDW Standard Deviation 43.3 fL (36.4-46.3); Red Blood Count 4.85 M/uL (4.7-6.1); White Blood Count 6.78 K/uL (4.8-10.8)
[2021-08-21] MEDS ORDERED: ATROPINE SULFATE 0.1 MG/ML 10ML SYR IV PRN (13:05)
[2021-08-21] MEDS ORDERED: ePHEDrine sulfate 50 MG/ML AMP IV PRN (13:05)
[2021-08-21] MEDS ORDERED: ALBUTEROL 0.083% NEBU SOLN 3 ML VIAL INH PRN (13:05)
[2021-08-21] MEDS ORDERED: MEPERIDINE HCL 25 MG/ML CARP/VIAL IV PRN (13:05)
[2021-08-21] MEDS ORDERED: fentaNYL citrate 100 MCG/2 ML VIAL IV PRN (13:05)
[2021-08-21] MEDS ORDERED: MoRPHine SULFATE 10 MG/ML CARP/VIAL IV PRN (13:05)
[2021-08-21 13:30] LABS: BUN Creatinine Ratio 15.2 (10-20); Calcium 9.3 mg/dl (8.5-10.1); Est GFR (African American) 116.3 ml/min; Est GFR (Non-African American) 100.4 ml/min; Magnesium 1.9 mg/dl (1.7-2.4)
[2021-08-21] MEDS ORDERED: DIATRIZOATE MEGLUMINE 30% 100ML VIAL INSTIL PRN (13:57)
--- NOTE | 2021-08-21 14:05 | Operative Report ---
PG Post Operative Report Pre & Post Diagnosis Operation Date: 08/21/21 16:30 Pre-Op Diagnosis: (1) Left ureteral calculus: (2) Hydronephrosis of left kidney: (3) Renal colic on left side: Post-Op Diagnosis: (1) Left ureteral calculus: (2) Hydronephrosis of left kidney: (3) Renal colic on left side: I identified the patient and participated in the time-out.: Yes Procedure Operation Date: 08/21/21 16:30 Actual Procedures p Cystoscopy with Left Aspiration, Retrograde Pyelogram, Left Stent Placement(Left) - Robbin Spear DO Surgeon Robbin Spear, II, DO Business Continuity Global Director None Estimated Blood Loss 1 Findings Consistent with Post-Op Diagnosis Stent placed in good position. Specimens Urine Left Kidney Drains 6 Fr x 28 Anesthesia Type MAC Complications none Disposition Disposition: Recovery Room Indications Patient with obstruction. Risks and benefits discussed at length. Description of Procedure Patient was consented and brought back to the operating room. Patient was placed under anesthesia in the supine position and moved to the dorsal lithotomy position. Patient was prepped and draped in the regular sterile fashion. A time out was completed. A 30degree Cystoscope was placed into the bladder and the entire bladder was examined. The UO's were identified. The UO was cannulized with a catheter, urine was aspirated, and a retrograde pyelogram was completed. A wire was then placed. With the wire in place, a 6 Fr Double J stent was placed. It was confirmed with fluoroscopy. With the stent in place, the bladder was emptied. The scope was removed. The patient was cleaned, aroused from anesthesia, and transferred to the pacu in stable condition having tolerated the procedure well with no complications. I was present and participated in all aspects of the procedure. The patient will be monitored in the PACU until transferred. Will plan to have patient set up for stone treatment in next 1-2 weeks. I attest to the content of the Intraoperative Record and any orders documented therein. Any exceptions are noted below.
--- NOTE | 2021-08-21 14:32 | Fluoroscopy Report ---
FL retrograde includes kub HISTORY: 31 years-old Male LT left-sided cystourethrogram COMPARISON: CT abdomen pelvis 08/20/2021 TECHNIQUE: 2 spot fluoroscopic images of the abdomen and pelvis were obtained utilizing 22.2 seconds fluoroscopy time FINDINGS: A left-sided ureteral stent appears to be in satisfactory positioning. Retained contrast is noted wit hin the left renal collecting system which appears to be slightly dilated. IMPRESSION: Fluoroscopic assistance as above. ACT 112: Negative or not required by law. The above report was generated using voice recognition software. It may contain grammatical, syntax o r spelling errors. Electronically signed by: Joshua Ruiz M.D. 08/21/2021 2:31 PM
--- NOTE | 2021-08-21 14:51 | Anesthesiology Progress Note ---
Date of Service August 21, 2021 Anesthesia Post Procedure Vital Signs Vital Signs: Temp Pulse Pulse Pulse Resp BP BP 08/21/21 14:45 36.7 C 53 L 12 106/63 08/21/21 14:35 58 L 14 119/63 08/21/21 14:25 59 L 19 122/65 08/21/21 14:15 36.1 C L 76 22 119/64 08/21/21 12:57 36.8 C 57 L 18 08/21/21 07:28 36.6 C 70 16 08/21/21 02:45 37 C 71 16 08/21/21 02:30 51 L 17 08/20/21 22:47 100 H 20 08/20/21 22:21 35.9 C L 50 L 18 131/84 BP Pulse Ox 08/21/21 14:45 98 08/21/21 14:35 96 08/21/21 14:25 95 08/21/21 14:15 98 08/21/21 12:57 103/62 98 08/21/21 07:28 106/62 96 08/21/21 02:45 124/83 95 08/21/21 02:30 127/79 93 08/20/21 22:47 132/80 100 08/20/21 22:21 98 Pain Intensity Left Flank: Pain Intensity: 10 Transfer of Care Handoff Completed per policy Notes Mental Status: alert / awake / arousable Patient Amnestic to Procedure: Yes Nausea / Vomiting: adequately controlled Pain: adequately controlled Airway Patency, RR, SpO2: stable & adequate BP & HR: stable & adequate Hydration State: stable & adequate Anesthetic Complications: no major complications apparent and Pt Satisfied with anesthetic care
[2021-08-21] MEDS: POLYETHYLENE (MIRALAX) 17 GM PACK PO SCH (20:08)
[2021-08-21] MEDS: DOCUSATE SODIUM/SENNA 50/8.6MG TAB PO SCH (20:09)
[2021-08-21] MEDS ORDERED: TAMSULOSIN HCL 0.4 MG CAP PO SCH (21:00)
[2021-08-22] MEDS: cefTRIAXone SODIUM 2,000 MG in DEXTROSE 5% 50 ML IV SCH (05:48)
--- NOTE | 2021-08-22 07:24 | Urology Progress Note ---
Date of Service August 22, 2021 Assessment & Plan (1) Left ureteral calculus: Plan: 31-year-old male with left obstructing ureteral calculi status post cystoscopy with left ureteral stent placement by Dr. Spear on 08/21/2021 Doing well postoperatively. Pain well controlled and urinating without issue Labs stable today Follow-up cultures and treat as necessary Patient be discharged home with Flomax daily, Ditropan 5 mg 3 times daily as needed and Colace Stable for discharge home from a urologic perspective Urology will set up outpatient follow-up to discuss stone treatment Admission and Anticipated Discharge Date Admission Date: August 21, 2021 Subjective No acute issues overnight. Patient tolerating stent without issue. Pain controlled. Voiding without difficulty. Review of Systems Review of Systems: 14 point review of systems negative outside of what is listed above in HPI Physical Exam Physical Exam: General: Alert and oriented, no acute distress HEENT: Normocephalic, mucous membranes moist Pulmonary: Nonlabored respirations Abdomen: Nondistended Extremities: Moves all 4 spontaneously Neuro: No gross deficits Skin: Warm, dry, no rashes noted Results & Data ([facility]) Vital Signs (Past 12 Hours) Vital Signs Temp Pulse Pulse Resp BP Pulse Ox 08/22/21 03:50 36.7 C 60 18 120/70 96 08/22/21 00:05 36.7 C 55 L 18 120/75 95 08/21/21 22:13 36.7 C 54 L 18 115/70 94 PG Care Time/CCT Total # of Minutes Spent Total Time Spent with Patient: Total time spent is greater than 50% in coordination of care (as documented) at patient's floor/unit and/or counseling patient: [place] [address] Subseq Hosp Care Lvl 2 Patient Type Established Diagnoses Left ureteral calculus N20.1
[2021-08-22] MEDS: DOCUSATE SODIUM/SENNA 50/8.6MG TAB PO SCH (08:57)
[2021-08-22] MEDS: POLYETHYLENE (MIRALAX) 17 GM PACK PO SCH (08:57)
[2021-08-22] MEDS ORDERED: CHOLECALCIFEROL 1,000 UNITS 25 MCG TAB PO SCH (09:00)
[2021-08-22 09:29] LABS: BUN Creatinine Ratio 13.8 (10-20); Calcium 9.9 mg/dl (8.5-10.1); Creatinine Clr Calc Pharmacy 134.8 ml/min; Est GFR (African American) 123.8 ml/min; Est GFR (Non-African American) 106.9 ml/min; Potassium 4.1 mmol/L (3.5-5.1)
--- NOTE | 2021-08-22 11:23 | Discharge Summary ---
Date of Service August 22, 2021 Admission HPI Per Admitting Provider The patient is a 31-year-old male with a past medical history including right ureteral stone. He presents to the emergency department with similar type of pain, but this time on the left side, along with his symptoms as noted above. CT scan of abdomen and pelvis without contrast shows a 5 mm proximal left ureteral stone, a 7.4 mm mid left ureteral stone, and mild left hydroureteronephrosis. Reactive ileus is also noted. The patient did have his pain improved with morphine IV, and nausea and vomiting improved with Zofran. Admission Exam Per Admitting Provider The patient is awake, alert and oriented 3, well developed and well nourished, normocephalic and atraumatic, lying in bed and in no acute distress after recei ving IV morphine HEENT--PERRL, EOMI, mucous membranes and oropharynx normal. Neck--supple. No JVD. No bruits. Thyroid normal, trachea midline, no adenopathy. Heart--normal S1 and S2. No murmurs, rubs or gallops. Lungs--clear bilaterally, no respiratory distress, no accessory muscle use. Abdomen--normal bowel sounds and soft. Mild left flank pain. Nondistended. Extremities--no cyanosis or clubbing. No edema. Dermatologic--normal skin turgor, normal color, no abnormal lymph nodes, no rash. Neurologic--cranial nerves II through XII grossly intact. Rheumatologic--normal range of motion. Psychiatric--normal affect. Principal Diagnosis Nephrolithiasis Discharge Exam General: WN, WD male sitting upright in bed, NAD HEENT: head normocephalic, atraumatic, mm dry, trachea midline without deviation Resp: CTAB, no w/c/r, on room air CV: RRR, no m/r/g, no calf tenderness or edema GI: +BS, soft, non-tender : no woody Psych: AOx3, pleasant and cooperative MSK/Neuro: CN intact grossly, follows commands, answering questions appropriately, no focal deficit appreciated Discharge Data Allergies Allergy/AdvReac Type Severity Reaction Status Date / Time No Known Allergies Allergy Unknown UNKNOWN Verified 08/20/21 23:05 Consultations 08/21/21 00:38 Consult Urology Stat 08/21/21 00:41 ED Decision to Admit Stat Procedures Performed Operation Date: 08/21/21 16:30 Actual Procedures p Cystoscopy, Left Retrograde Pyelogram, Left Stent Placement(Left) - Robbin Davis, Ordered Studies Abdomen/Pelvis CT 08/20/21 22:32 CT OF THE ABDOMEN AND PELVIS WITHOUT CONTRAST CLINICAL HISTORY: flank pain, ? stone COMPARISON STUDY: CT of the abdomen and pelvis January 03, 2021. KUB April 25, 2021. TECHNIQUE: Axial images of the abdomen and pelvis were obtained without IV contrast. Images were reviewed in the axial, sagittal, and coronal planes. Automated exposure control was utilized for the study. A dose lowering technique was utilized adhering to the principles of ALARA. FINDINGS: Lung bases are unremarkable. Note is made of a 5 mm left ureteropelvic junction calculus. There is mild left hydronephrosis. There is also a 7 mm x 4 mm proximal left ureteral calculus. There is mild left perinephric and periureteral stranding. No additional urinary calculi are identified. Is no right hydronephrosis. Evaluation of the remainder of the abdomen and pelvis is suboptimal on this unenhanced exam. Liver, spleen, adrenal glands and pancreas are unremarkable. No evidence for a bowel obstruction. Appendix is normal. There are prominent fluid-filled loops of small bowel without transition point. These are likely within normal limits. There is no lymphadenopathy or ascites. No acute fracture or suspicious lesion is identified within the visualized skeletal structures. IMPRESSION: 7 mm x 4 mm proximal left ureteral calculus. Additional 5 mm left ureteropelvic junction calculus. Mild left hydronephrosis. ACT 112: Negative or not required by law. Electronically signed by: Shayne Chapman M.D. 08/21/2021 8:23 AM Retrograde Pyelogram 08/21/21 00:00 FL retrograde includes kub HISTORY: 31 years-old Male LT left-sided cystourethrogram COMPARISON: CT abdomen pelvis 08/20/2021 TECHNIQUE: 2 spot fluoroscopic images of the abdomen and pelvis were obtained utilizing 22.2 seconds fluoroscopy time FINDINGS: A left-sided ureteral stent appears to be in satisfactory positioning. Retained contrast is noted within the left renal collecting system which appears to be slightly dilated. IMPRESSION: Fluoroscopic assistance as above. ACT 112: Negative or not required by law. The above report was generated using voice recognition software. It may contain grammatical, syntax or spelling errors. Electronically signed by: Joshua Ruiz M.D. 08/21/2021 2:31 PM KUB X-Ray 08/21/21 09:44 KUB CLINICAL HISTORY: Left ureteral calculi. FINDINGS: 2 AP supine abdominal radiographs are compared to study dated 02/02/2021 and correlated with abdominal CT dated 08/20/2021. There is a nonobstructed abdominal bowel gas pattern noting moderate colonic fecal retention. A 5 mm calculus projects over the lower pole of the left kidney. A 6 mm calcification projects over the distal left ureter and likely represents a ureteral stone. No calcifications are seen projecting over the right kidney along the course of the right ureter. There are additional pelvic phleboliths. The bony structures appear intact. IMPRESSION: 1. A 6 mm calcification projects over the distal left and likely represents a ureteral stone. 2. An additional 5 mm calculus projects over the lower pole of the left kidney. Electronically signed by: Garrett España M.D. 08/21/2021 12:42 PM Hospital Course (1) Left ureteral calculus: Hx nephrolithiasis on the right last year, tx with ESWL with Dr [facility] with 5 mm proximal left ureteral stone/7.4 mm mid left ureteral stone/mild left hydroureteronephrosis Urology consulted s/p cyto and stent placement Given ceftriaxone while inpatient but no need for abx at discharge. Prior UA on admission without infection. Cx from OR pending at time of d/c, discussed with Urology and no need for abx. Can call f/u on results if abnormal IVF, pain medication as needed Continue Ditropan 5mg TID prn and flomax HS daily at discharge F/U Urology for definitive stone treatment See below for possible primary vs secondary hyperparathyroidism possibly und erlying cause to kidney stone formation (2) Serum calcium elevated: prior elevation ca 11.1 last fall with prior stone. Was normal on admission this time, but given hx stones (had drank lots of tea in past, which had been significantly reduced), checked Vit D level --> Vit D level low 15 and started supplementation PTH elevated to 110, could be primary hyperparathyroidism --> Rec'd f/u with PCP (no PCP and having new one arranged) and can repeat labs once vit D normalized, and if remains abnormal consider additional testing/24h urine calcium/referral to endocrinology for possibility for PHPT (3) Hydronephrosis of left kidney: See above (4) Hydronephrosis with obstructing calculus: See above (5) Renal colic on left side: See above SCDs, ambulation for DVT prophylaxis while inpatient Total Time Total Time Spent Total Time Spent (In Minutes): 60 Discharge Plan Discharge Items Patient Disposition: Home - Self-Care Reason For Visit: OBSTRUCTING L URETERAL STONES, MILD L HYDRO Discharge Diagnosis: Obstructing Kidney Stone Goals: You have been hospitalized for an urgent problem which required surgery. During your stay at [facility], we have made an effort to correct the problem that brought you to the hospital while keeping you as comfortable as possible. Surgery and medications were used to bring your condition under control and your discharge instructions will include directions for any medications you should take after leaving the hospital. Please make sure to follow the advice of your surgeon regarding follow up with the surgeon and with your primary care provider. Activity: Resume your previous activity Non-emergency contact: Primary Care Provider and Urologist Call non-emergency contact if: you have any medication questions, your symptoms worsen and your pain is unusual for you Follow-up/Referrals: Beny Nugent CRNP [Nurse Practitioner] - 09/07/21 2:00 pm (Primary care with [facility] in [place]. A referral and appointment request has been sent to this office on your behalf. Anticipate that the office will reach out to you directly with appointment information. If you do not hear from them within one week, please call the [facility] Nurse Navigator at #[phone] to follow up.) Robbin Davis DO [Physician] - ([facility] WILL CALL THE PATIENT WITH A HOSPITAL F/U VISIT DUE TO DR DAVIS BEING OUT OF THE OFFICE NEXT. 1 week This office should call you with appointment information, after your hospital discharge. If you do not hear from them within several days, please call them at the number above to follow up.) Diet: Regular Addtl Attending Provider Instructions: You have been hospitalized for a left sided obstructing kidney stone. Urine analysis did not indicate infection. Urology was consulted, and you underwent a cystoscopy and stent placement. You should continue Flomax 0.4mg at night and continue to strain your urine for evidence for passage of stone. You have been sent medications to use as needed for pain. Please follow up with Urology at discharge for definitive stone treatment. We will work on getting you a primary care appointment and you should have routine medical care/monitoring. They do not feel any antibiotics needed at discharge, but will call if any cultures from cystoscopy return with any abnormality. Please drink plenty of fluids to ensure staying well hydrated. Limit caffeine/teas as these can increase risk for stone formation. I did check a Vitamin D level given prior elevations in calcium levels in the system, and this was low. This not being treated causes our parathyroid hormone (which was also elevated) to cause release of calcium from the bones to help maintain levels when Vitamin D level is low and can lead to increased kidney stone formation. You have been started on supplementation and should continue this at discharge. The PCP can repeat these labs outpatient to see levels once Vitamin D normalized, as well as 24 hour urine calcium testing and other testing. There is also a chance that you have an elevation of your parathyroid hormone due to a benign overgrowth of one of your parathyroid glands. This can also be checked as an outpatient with your PCP. Please return to the ER for any worsening pain, fever, inability to keep up with oral intake, or for any symptoms that are concerning for you. It has been a pleasure being a part of the medical team providing for you while you have been in the hospital. Take care! Pending Studies at Discharge: Yes Studies:: Urine culture -- KIDNEY Stand-Alone Forms: My [facility] [employer], Smoking Cessation Medications and DC Order Prescriptions: New tamsulosin 0.4 mg Capsule 0.4 mg PO HS 30 Days Qty: 30 RF: 0 cholecalciferol (vitamin D3) 25 mcg (1,000 unit) Capsule 3,000 unit PO QAM 30 Days Qty: 90 RF: 0 oxybutynin chloride 5 mg tablet 5 mg PO Q8H PRN (Reason: bladder spasms) Qty: 14 RF: 0 Continued acetaminophen [Tylenol] 325 mg Tablet 650 mg PO DIRECTED PRN (Reason: PAIN/FEVER) RF: 0 Discharge Orders: Discharge Order (Routine); Ordered 08/22/21 Ordered By: Isabel Donnelly Admission Data Admit Date/Time: 08/21/21 01:20 Attending Provider: Alla Cates Admit Provider: Hardeep Iqbal Primary Care Provider: PCP,NO Other Providers: Robbin Davis ; Hardeep Iqbal Other Interventions: Discharge Summary Assessment (RN) Last Done: 08/22/21 11:34 Supervising Physician Co-Signing Physician Notes PA Supervision Note: I personally saw and examined the patient. I verified all mcclendon points and agree with ELENI Donnelly with the following exceptions and/or additions: S-Feelin gbetter, having some mild discomfort with urination since stent placed. Denies any other problems, is eating and drinking, doing well. Afebrile O- Vitals reviewed Gen: [AAOx3, NAD] HEENT: [anicteric sclerae, EOMI] CV: [RRR no mgr nl S1S2] Pulm: [CTAB no wcr] Abd: [+BS soft NT ND no masses or hernias] Ext: [no edema] Skin: [no rashes, warm/dry] Neuro: [full strength throughout] A/P-31 yo male here with left ureterolithiasis with hydronephrosis, now s/p left ureteral stent placement. Also found ot have elevated iPTH and hypercalcemia previously. Vit D mildly low at 15 but seems more likely he has primary hyperparathyroidism. Advised follow up with PCP for further workup of hyperparathryoidism and hypercalcemia as outpt to include setamibi scan, 24 hr urine calcium Coding Level of Care Code D/C DAY MANAGEMENT >30 MINS Diagnoses Left ureteral calculus N20.1 Hydronephrosis of left kidney N13.30 Hydronephrosis with obstructing calculus N13.2 Renal colic on left side N23 Serum calcium elevated E83.52
== END 2021-08-22 12:36 | disposition home or self-care (01) | DRG 660 ==
LOC: ED 22:17 → SUATTDRO 08-21 01:20 → 3W 08-21 01:20